=== PATIENT | female | born 1955 ===

== ENCOUNTER 2021-09-21 11:37 | Outpatient (CLI) | payer MEDICARE ==
[2021-09-21] MEDS ORDERED: Iopamidol 370 76% 100 ML VIAL ONE (15:13)
== END 2021-09-21 11:38 | disposition home or self-care (01) ==
LOC: CSHCT 11:37
PROVIDERS: ATTEND Radiology Radiation Oncology
DX: C34.11 Malignant neoplasm of upper lobe, right bronchus or lung (principal); Z92.3 Personal history of irradiation; J98.4 Other disorders of lung; N63.10 Unspecified lump in the right breast, unspecified quadrant
CPT/HCPCS: 71260; 82565; Q9967